=== PATIENT | female | born 1995 | race Caucasian/White ===

== ENCOUNTER 2018-05-07 21:21 | Emergency (ER) | payer OTHER ==
[~2018-05-07] VITALS: Ht 160 cm; Wt 72.1 kg
[2018-05-07] MEDS ORDERED: EXCEDRIN CAPLE1 EACH PO (21:42)
[2018-05-07 21:54] LABS: URINE BILIRUBIN NEGATIVE (Negative); URINE BLOOD 3+ (Negative); URINE CLARITY SL CLOUDY; URINE COLOR YELLOW; URINE GLUCOSE-RANDOM* NEGATIVE (Negative); URINE KETONES NEGATIVE (Negative); URINE NITRITE-REFLEX NEGATIVE (Negative); URINE PROTEIN (DIPSTICK) NEGATIVE (Negative); URINE SPECIFIC GRAVITY 1.025 (1.005-1.035); URINE UROBILINOGEN 0.2 E.U./dl (0.2-1.0)
[2018-05-07 21:57] LABS: URINE LEUKOCYTES-REFLEX 3+ (Negative)
[2018-05-07 22:05] LABS: BACTERIA-REFLEX >30 Many /HPF (None Seen); CASTS None Seen /LPF (None Seen); CRYSTALS None Seen /LPF (None Seen); MUCUS 0-3 Light strn/LPF (None Seen); SQUAMOUS 4-10 Moderate /LPF (0-3); WBC CLUMPS Few (None Seen)
[2018-05-07 22:17] LABS: HEMATOCRIT 39.6 % (37.0-47.0); MCH 27.3 pg (26.0-34.0); MCHC 32.8 g/dL (28.0-37.0); MCV 83.1 fL (80.0-100.0); RBC 4.76 mil/uL (4.20-5.00); RDW 13.1 % (10.5-14.5); WBC 12.7 thou/uL (4.0-11.0)
[2018-05-07 22:28] LABS: CALCIUM 8.6 mg/dL (8.5-10.1); CREATININE 0.6 mg/dL (0.6-1.0); POTASSIUM 3.1 mmol/L (3.5-5.1)
[2018-05-08] MEDS ORDERED: KEFLEX500 M2 PO (01:41)
[2018-05-08] MEDS ORDERED: REGLAN 10 MG TA10 MG PO (01:41)
[2018-05-08 02:17] VITALS: BP 95/49
== END 2018-05-08 02:18 | disposition home or self-care (01) ==
LOC: ER 21:21
PROVIDERS: Emergency Medicine; Physician Assistant
DX: O20.0 Threatened abortion (principal); O23.01 Infections of kidney in pregnancy, first trimester; N12 Tubulo-interstitial nephritis, not specified as acute or chronic; Z3A.01 Less than 8 weeks gestation of pregnancy